=== PATIENT | female | born 1965 | race African-American/Black ===

== ENCOUNTER 2018-09-06 21:03 | Emergency (ER) | payer OTHER ==
[~2018-09-06] VITALS: Ht 167.6 cm; Wt 95.3 kg
[2018-09-06] MEDS ORDERED: MICROZIDE12.5 MG PO (21:18)
[2018-09-06] MEDS ORDERED: MICARDIS40 MG PO (21:21)
[2018-09-07] MEDS ORDERED: MOBIC15 MG PO (00:09)
[2018-09-07] MEDS ORDERED: CYCLOBENZAPRINE5 MG PO (00:09)
[2018-09-07 00:46] VITALS: BP 176/106
== END 2018-09-07 00:47 | disposition home or self-care (01) ==
LOC: ER 21:03
DX: S16.1XXA Strain of muscle, fascia and tendon at neck level, initial encounter (principal); I10 Essential (primary) hypertension; Z90.49 Acquired absence of other specified parts of digestive tract; V89.2XXA Person injured in unspecified motor-vehicle accident, traffic, initial encounter; Y92.89 Other specified places as the place of occurrence of the external cause; Y93.89 Activity, other specified; Y99.8 Other external cause status

== ENCOUNTER 2019-03-01 14:21 | Emergency (ER) | payer OTHER ==
[~2019-03-01] VITALS: Ht 167.6 cm; Wt 89.8 kg
[~2019-03-01 14:21] MED LIST: CYCLOBENZAPRINE5 MG PO; MICARDIS40 MG PO; MICROZIDE12.5 MG PO; MOBIC15 MG PO
[2019-03-01] MEDS ORDERED: NORFLEX100 MG PO (15:45)
[2019-03-01] MEDS ORDERED: NAPROSYN500 MG PO (15:45)
[2019-03-01] MEDS ORDERED: TYLENOL WITH CO1 TA1 PO (15:45)
[2019-03-01 16:14] VITALS: BP 177/102
[2019-03-02] MEDS ORDERED: MOBIC7.5 MG PO ×2 (11:55→12:03)
== END 2019-03-01 16:14 | disposition home or self-care (01) ==
LOC: ER 14:21
DX: M54.41 Lumbago with sciatica, right side (principal); M43.6 Torticollis; I10 Essential (primary) hypertension; Z90.49 Acquired absence of other specified parts of digestive tract

== ENCOUNTER 2019-03-02 11:41 | Emergency (ER) | payer OTHER ==
[~2019-03-02] VITALS: Ht 167.6 cm; Wt 89.8 kg
[~2019-03-02 11:41] MED LIST changes: +NAPROSYN500 MG PO; +NORFLEX100 MG PO; +TYLENOL WITH CO1 TA1 PO
[2019-03-02 11:42] VITALS: BP 196/88
[2019-03-02] MEDS ORDERED: MOBIC7.5 MG PO ×2 (11:55→12:03)
== END 2019-03-02 12:39 | disposition home or self-care (01) ==
LOC: ER 11:41
DX: M54.41 Lumbago with sciatica, right side (principal); I10 Essential (primary) hypertension; Z90.49 Acquired absence of other specified parts of digestive tract